=== PATIENT | male | born 1935 | race Caucasian/White ===

== ENCOUNTER 2019-12-07 14:41 | Emergency (ER) | payer MEDICARE, MEDICAID ==
[~2019-12-07] VITALS: Ht 162.6 cm; Wt 59.0 kg
[~2019-12-07 14:41] MED LIST: LEVO125T8 PO; OMEP10SU2 PO; OMEP20CA14 PO; SENN1TAB86 PO; SULF1TAB48 PO; VIC PO
[2019-12-07 14:45] VITALS: BP 155/81
[2019-12-07] MEDS ORDERED: IBUPROFEN 400MG TABLET PO ONE (16:45)
[2019-12-07] MEDS ORDERED: ONDANSETRON 4MG ODT PO ONE (16:45)
[2019-12-07] MEDS ORDERED: FAMOTIDINE 20MG TABLET PO ONE (16:45)
[2019-12-07 18:29] LABS: BASOPHILS % 1.1 % (0.0-2.0); EOSINOPHILS % 4.1 % (0.0-5.0); HEMATOCRIT. 44.9 % (42.0-52.0); HEMOGLOBIN. 15.5 g/dL (14.0-18.0); LYMPHOCYTES % 13.8 % (20.0-50.0); MEAN CORPUSCULAR HEMOGLOBIN 32.6 pg (28.0-32.0); MEAN CORPUSCULAR VOLUME 94.4 fL (80.0-94.0); MEAN PLATELET VOLUME 7.6 fl (7.4-10.4); MONOCYTES % 4.8 % (2.0-8.0); NEUTROPHILS % 76.2 % (40.0-76.0); PLATELET 248 x1000/uL (130-400); RED BLOOD CELL COUNT 4.76 mill/uL (4.7-6.1); RED CELL DISTRIBUTION WIDTH 13.6 % (11.6-14.6)
[2019-12-07 18:35] LABS: CHLORIDE 106 mEq/L (98-107)
== END 2019-12-07 20:27 | disposition home or self-care (01) ==
LOC: ER 14:41
DX: R55 Syncope and collapse (principal); M79.629 Pain in unspecified upper arm; I10 Essential (primary) hypertension; Z93.3 Colostomy status
CPT/HCPCS: 36415; 80048; 84484; 85025; 93005; 99284; Q0162